=== PATIENT | male | born 1975 | race Caucasian/White ===

== ENCOUNTER 2022-10-02 10:12 | Inpatient (IN) ==
[2022-10-02] MEDS ORDERED: SODIUM CHLORIDE 0.9% 1000ML 1,000 ML IV ONE (10:32)
[2022-10-02] MEDS ORDERED: OPTIRAY 320 500ml IV ONE (10:40)
--- NOTE | 2022-10-02 10:53 | CT Scan Report ---
CT OF THE HEAD WITHOUT CONTRAST CLINICAL HISTORY: neuro deficit, acute stroke suspected. Weakness. COMPARISON STUDY: No previous studies for comparison. TECHNIQUE: Helical axial images of the head were obtained without IV contrast. Automated exposure con trol was utilized for the study. A dose lowering technique was utilized adhering to the principles o f ALARA. FINDINGS: No acute intracranial hemorrhage, midline shift or mass effect is present. The ventricular system is unremarkable. The basal cisterns are patent. No extra-axial collections are present. There are no findings to suggest acute dural sinus thrombosis or acute territorial infarct. No significant calvarial abnormalities are present. Visualized portions of the sinuses and mastoid air cells are giovanna ar. IMPRESSION: No acute intracranial findings. ACT 112: Negative or not required by law. Electronically signed by: Nickolas Gillespie M.D. 10/02/2022 10:51 AM
[2022-10-02 10:57] LABS: Basophils # (auto) 0.01 K/uL (0-0.2); Basophils % (auto) 0.2 %; Eosinophils # (auto) 0.07 K/uL (0-0.50); Eosinophils % (auto) 1.2 %; Hematocrit (blood only) 39.8 % (42.0-52.0); Hemoglobin 14.7 g/dl (14.0-18.0); Immature Granulocytes # (auto) 0.02 K/uL (0.01-0.20); Immature Granulocytes % (auto) 0.3 %; Lymphocytes # (auto) 1.77 K/uL (1.2-3.4); Lymphocytes % (auto) 30.6 %; Mean Corpuscular Hemoglobin 31.4 pg (25.0-34.0); Mean Corpuscular Hgb Conc 36.9 g/dL (32.0-36.0); Mean Platelet Volume 8.8 fL (9.4-12.4); Monocytes # (auto) 0.56 K/uL (0.11-0.59); Monocytes % (auto) 9.7 %; Neutrophils # (auto) 3.35 K/uL (1.40-6.50); Platelet Count 242 K/uL (130-400); RDW Coefficient of Variation 11.7 % (11.5-14.5); RDW Standard Deviation 35.4 fL (36.4-46.3); Red Blood Count 4.68 M/uL (4.70-6.10); White Blood Count 5.78 K/ul (4.8-10.8)
--- NOTE | 2022-10-02 11:00 | CT Scan Report ---
CT ANGIOGRAM OF THE NECK CLINICAL HISTORY: Neurological deficit. Stroke like symptoms. COMPARISON STUDY: No priors. TECHNIQUE: Following the IV administration of 120 of Optiray 320, CT angiogram of the neck was perfor med from the aortic arch to the skull base. Images are reviewed in the axial, sagittal, and coronal p lanes. 3-D MIPS images are created and assessed. IV contrast was administered without complication. A ll measurements were calculated based on NASCET criteria. A dose lowering technique was utilized adh ering to the principles of ALARA. CT DOSE: 1268.39 mGy.cm FINDINGS: Thoracic aorta: Visualized portions of the thoracic aorta are normal in caliber. The aortic arch demo nstrates bovine variant anatomy. Right carotid arterial system: The right common carotid artery is widely patent, as are the right int ernal and external carotid arteries. Left carotid arterial system: The left common carotid artery is widely patent, as are the left events intern al and external carotid arteries. Vertebral arteries: The vertebral arteries are widely patent bilaterally and codominant. Subclavian arteries: Widely patent bilaterally. Intracranial vasculature: The partially visualized intracranial vessels at the skull base appear jarvis nt. Sinuses and mastoids: There is trace mucosal thickening in the left maxillary antrum. The remaining v isualized paranasal sinuses are clear. The mastoid air cells are well pneumatized. Jugular veins: Widely patent bilaterally. Brain parenchyma: The visualized brain parenchyma the skull base is within normal limits. Upper chest: There are numerous subcentimeter upper lobe pulmonary nodules. No airspace consolidation or pleural effusion is identified. Mildly enlarged and calcified mediastinal lymph nodes are partial ly visualized. There are also calcified hilar nodes. Soft tissues: The visualized pharyngeal soft tissues are normal in appearance noting angiographic pha se technique. The oropharyngeal airway appears widely patent. The salivary and thyroid glands are nor mal in appearance. No cervical lymphadenopathy is seen. Skeletal structures: The visualized calvarium at the skull base appears intact. The imaged cervical s pine is within normal limits. Sinuses and mastoids: There is trace mucosal thickening in the left maxillary antrum. The remaining v isualized paranasal sinuses are clear. The mastoid air cells are well pneumatized. IMPRESSION: 1. Unremarkable CT angiogram of the neck. 2. There are numerous subcentimeter upper lobe pulmonary nodules as well as mildly enlarged and calci fication containing mediastinal and hilar lymph nodes. These finding could be related to remote granu lomatous infection or possibly a granulomatous process such as sarcoidosis. Clinical correlation will be required. Nonemergent/outpatient pulmonology follow-up is recommended. ACT 112: Negative or not required by law. Electronically signed by: Davey Gu M.D. 10/02/2022 10:59 AM
[2022-10-02] MEDS ORDERED: LABETALOL HCL IV 5 MG/ML 20ML IV ONE (11:02)
--- NOTE | 2022-10-02 11:09 | Emergency Department Note ---
Impression & Plan Hypertensive emergency, Stroke-like symptoms, Dizziness ED Provider Note NAME: GERMÁN DOSHI AGE: 46 SEX: M ARRIVES VIA: Walk-In INFORMANT: Patient ED PROVIDER(S): Reno Wills MD CHIEF COMPLAINT: dizziness, left face change in sensation. PLAN: Disposition: Admit MEDICAL DECISION MAKING: The patient is a pleasant 46-year-old gentleman with past medical history of hypertension who admits to being noncompliant with his medications where he is supposed to be on lisinopril who presents to the emergency department for acute onset of symptoms of dizziness/imbalance that occurred around 9 AM when he reports he was at work standing at his desk taking a phone call when he suddenly felt the sense of imbalance. He reports he sat down and felt somewhat better but still not quite normal. He reports when he would stand the symptoms would be more noticeable. He is able to ambulate but reports that he feels "drunk". He further adds he feels a difference in sensation on the left side of his face but does not feel "numbness. He denies any extremity weakness. He denies any chest pain, shortness of breath, headache, changes in vision. Denies any recent cough, congestion, GI or symptoms. 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 On arrival the patient is no acute distress, afebrile with blood pressure elevated in the 200s/120s and vital signs otherwise stable. He appears clinically dry. He has no objective neurologic deficits but reports subjective difference in sensation on the left side of his face as well as sense of imbalance but was noted to ambulate with a steady gait. Given the acute onset of his symptoms stroke alert was activated. Case was discussed with [facility] telestroke neurology Dr. Eastman who will evaluate the patient on telestroke terminal. EKG without overt acute ischemia. CXR negative for acute cardiopulmonary p rocess. WBC, hemoglobin and platelets within normal limits. Chemistry without metabolic acidosis. Electrolytes and LFTs without significant abnormality. High- sensitivity troponin 8.0, within normal limits. UA without evidence of infection. COVID-19 RNA, ELFEGO test was negative. CT of the head CT of the head and neck were performed negative for ICH, ischemia or severe narrowing or occlusion of large vessels. Upon [facility] telestroke evaluation the patient had subsequent resolution of symptoms though he did remain hypertensive. Patient was ordered for 10 mg of IV labetalol and has not some gradual improvement from maps in the 150s to maps in the 130s to the still in the 180s/130s. Appreciate recommendations from Dr. Harding for continued blood pressure management. MRI is not necessary at this point as stroke is not suspected. Recommends using 11 AM as new last known well for any recurrence of symptoms. Case was discussed with Tamra Jeffrey [facility] PAC with Dr. Szymanski, [facility] hospitalist, who will evaluate the patient for admission. IV Enalapril ordered for additional blood pressure control. Triage Nursing notes reviewed and agree them. Prior/outside medical records reviewed Vital Signs: reviewed Differential diagnosis: Infection, dehydration, metabolic abnormality, hypo/hyperglycemia, electrolyte disturbance, anemia, hypoxia, cardiac sources, intracerebral event, toxicologic, neurologic, as well as other pathologies. ER treatment provided: See below. Diagnostics interpreted by me: ECG: Normal sinus rhythm, 83 bpm, no ectopy, no overt ST elevation or depression, QTc 484, QRS 90 Cardiac Monitoring: An order for continuous cardiac monitoring was placed and demonstrated normal sinus rhythm, 83 bpm, no ectopy. Laboratory studies: See below Imaging studies: See below Consultation(s): [facility] telestroke neurology Dr. Eastman HPI: The patient is a pleasant 46-year-old gentleman with past medical history of hypertension who admits to being noncompliant with his medications where he is supposed to be on lisinopril who presents to the emergency department for acute onset of symptoms of dizziness/imbalance that occurred around 9 AM when he reports he was at work standing at his desk taking a phone call when he suddenly felt the sense of imbalance. He reports he sat down and felt somewhat better but still not quite normal. He reports when he would stand the symptoms would be more noticeable. He is able to ambulate but reports that he feels "drunk". He further adds he feels a difference in sensation on the left side of his face but does not feel "numbness. He denies any extremity weakness. He denies any chest pain, shortness of breath, headache, changes in vision. Denies any recent cough, congestion, GI or symptoms. 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 ROS: See above HPI for pertinent positives & negatives. A total of 10 systems reviewed and were otherwise negative. VITALS:See Below PHYSICAL EXAMINATION: GENERAL: Awake, alert, well-appearing, in no distress HENT: Normocephalic, atraumatic. Oropharynx with dry mucous membranes and otherwise unremarkable. EYES: Normal conjunctiva. Sclera non-icteric. EOMI. No nystamgus. PEARRL. NECK: Supple. No nuchal rigidity. FROM. No JVD. RESPIRATORY: Clear to auscultation. CARDIAC: Regular rate, normal rhythm. Extremities warm and well perfused. Pulses equal. ABDOMEN: Soft, non-distended. No tenderness to palpation. No rebound or guarding. No masses. RECTAL: Deferred. MUSCULOSKELETAL: Chest examination reveals no tenderness. The back is symmetrical on inspection without obvious abnormality. There is no CVA tenderness to palpation. No joint edema. LOWER EXTREMITIES: Calves are equal size bilaterally and non-tender. No edema. No discoloration. NEURO: Normal sensorium. No sensory or motor deficits noted. CNII-XII grossly intact. 5/5 strength and SILT x 4 extremities. Intact finger to nose. SKIN: No rash or jaundice noted. 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 Feels Safe at Home: Yes Allergies Allergies Allergy/AdvReac Type Severity Reaction Status Date / Time No Known Allergies Allergy Unverified 10/02/22 12:22 Home Meds Home Medications Medication Instructions Recorded Confirmed fluoxetine 20 mg tablet 30 mg PO DAILY 10/02/22 10/02/22 Results & Data (ED) Vital Signs Vital Signs - 24 hr 10/02/22 10:22 10/02/22 10:48 10/02/22 10:47 Temperature 36.9 C Temperature Source Temporal Artery Scan Pulse Rate 69 80 78 Pulse Rate [Apical] Pulse Rate from SpO2 Sensor Respiratory Rate 18 19 Respiratory Effort / Characteristics Non-Labored Spontaneous Respiratory Depth Normal Respiratory Pattern Regular Blood Pressure 202/128 H Blood Pressure [Right Arm] Blood Pressure Mean 152 Blood Pressure Mean [Right Arm] Blood Pressure Position Sitting Pulse Oximetry 98 98 Oxygen Delivery Method Room Air Room Air Sepsis Recent Fever Within 48 Hours No Sepsis New/Unexplained Change in Mental Status No Sepsis Action Taken by Nursing No Action Required 10/02/22 10:50 10/02/22 10:51 10/02/22 10:51 Temperature Temperature Source Pulse Rate 79 79 Pulse Rate [Apical] Pulse Rate from SpO2 Sensor Respiratory Rate 23 17 Respiratory Effort / Characteristics Respiratory Depth Respiratory Pattern Blood Pressure 205/127 H Blood Pressure [Right Arm] Blood Pressure Mean 153 Blood Pressure Mean [Right Arm] Blood Pressure Position Pulse Oximetry 97 Oxygen Delivery Method Room Air Sepsis Recent Fever Within 48 Hours Sepsis New/Unexplained Change in Mental Status Sepsis Action Taken by Nursing 10/02/22 10:45 10/02/22 11:00 10/02/22 11:00 Temperature Temperature Source Pulse Rate 78 76 Pulse Rate [Apical] Pulse Rate from SpO2 Sensor 76 Respiratory Rate 21 Respiratory Effort / Characteristics Respiratory Depth Respiratory Pattern Blood Pressure 247/145 H 185/139 H Blood Pressure [Right Arm] Blood Pressure Mean 179 154 Blood Pressure Mean [Right Arm] Blood Pressure Position Pulse Oximetry 96 Oxygen Delivery Method Sepsis Recent Fever Within 48 Hours Sepsis New/Unexplained Change in Mental Status Sepsis Action Taken by Nursing 10/02/22 11:05 10/02/22 11:05 10/02/22 11:10 Temperature Temperature Source Pulse Rate 70 74 Pulse Rate [Apical] Pulse Rate from SpO2 Sensor 72 74 Respiratory Rate 19 22 Respiratory Effort / Characteristics Respiratory Depth Respiratory Pattern Blood Pressure 208/127 H Blood Pressure [Right Arm] Blood Pressure Mean 154 Blood Pressure Mean [Right Arm] Blood Pressure Position Pulse Oximetry 98 98 Oxygen Delivery Method Sepsis Recent Fever Within 48 Hours Sepsis New/Unexplained Change in Mental Status Sepsis Action Taken by Nursing 10/02/22 11:08 10/02/22 11:18 10/02/22 11:18 Temperature Temperature Source Pulse Rate 75 Pulse Rate [Apical] Pulse Rate from SpO2 Sensor Respiratory Rate 24 Respiratory Effort / Characteristics Respiratory Depth Respiratory Pattern Blood Pressure 206/126 H 202/127 H Blood Pressure [Right Arm] Blood Pressure Mean 152 152 Blood Pressure Mean [Right Arm] Blood Pressure Position Pulse Oximetry Oxygen Delivery Method Sepsis Recent Fever Within 48 Hours Sepsis New/Unexplained Change in Mental Status Sepsis Action Taken by Nursing 10/02/22 11:20 10/02/22 11:20 10/02/22 11:27 Temperature Temperature Source Pulse Rate 71 Pulse Rate [Apical] Pulse Rate from SpO2 Sensor Respiratory Rate 24 Respiratory Effort / Characteristics Respiratory Depth Respiratory Pattern Blood Pressure 191/134 H 219/133 H Blood Pressure [Right Arm] Blood Pressure Mean 153 161 Blood Pressure Mean [Right Arm] Blood Pressure Position Pulse Oximetry 97 Oxygen Delivery Method Room Air Sepsis Recent Fever Within 48 Hours Sepsis New/Unexplained Change in Mental Status Sepsis Action Taken by Nursing 10/02/22 11:27 10/02/22 11:30 10/02/22 11:30 Temperature Temperature Source Pulse Rate 59 L 64 Pulse Rate [Apical] Pulse Rate from SpO2 Sensor 55 L 63 Respiratory Rate 11 L 19 Respiratory Effort / Characteristics Respiratory Depth Respiratory Pattern Blood Pressure 193/123 H Blood Pressure [Right Arm] Blood Pressure Mean 146 Blood Pressure Mean [Right Arm] Blood Pressure Position Pulse Oximetry 98 97 Oxygen Delivery Method Room Air Sepsis Recent Fever Within 48 Hours Sepsis New/Unexplained Change in Mental Status Sepsis Action Taken by Nursing 10/02/22 11:40 10/02/22 11:40 10/02/22 11:50 Temperature Temperature Source Pulse Rate 63 63 Pulse Rate [Apical] Pulse Rate from SpO2 Sensor 59 L 61 Respiratory Rate 20 23 Respiratory Effort / Characteristics Respiratory Depth Respiratory Pattern Blood Pressure 193/117 H Blood Pressure [Right Arm] Blood Pressure Mean 142 Blood Pressure Mean [Right Arm] Blood Pressure Position Pulse Oximetry 96 95 Oxygen Delivery Method Room Air Room Air Sepsis Recent Fever Within 48 Hours Sepsis New/Unexplained Change in Mental Status Sepsis Action Taken by Nursing 10/02/22 12:00 10/02/22 12:00 10/02/22 12:15 Temperature Temperature Source Pulse Rate 56 L 72 Pulse Rate [Apical] Pulse Rate from SpO2 Sensor 56 L 69 Respiratory Rate 14 15 Respiratory Effort / Characteristics Respiratory Depth Respiratory Pattern Blood Pressure 184/116 H Blood Pressure [Right Arm] Blood Pressure Mean 138 Blood Pressure Mean [Right Arm] Blood Pressure Position Pulse Oximetry 96 98 Oxygen Delivery Method Room Air Room Air Sepsis Recent Fever Within 48 Hours Sepsis New/Unexplained Change in Mental Status Sepsis Action Taken by Nursing 10/02/22 13:07 10/02/22 12:20 10/02/22 12:30 Temperature Temperature Source Pulse Rate 65 Pulse Rate [Apical] 62 Pulse Rate from SpO2 Sensor 65 Respiratory Rate 15 22 Respiratory Effort / Characteristics Respiratory Depth Respiratory Pattern Blood Pressure 171/124 H Blood Pressure [Right Arm] 179/116 H Blood Pressure Mean 139 Blood Pressure Mean [Right Arm] 137 Blood Pressure Position Pulse Oximetry 99 97 Oxygen Delivery Method Room Air Room Air Sepsis Recent Fever Within 48 Hours Sepsis New/Unexplained Change in Mental Status Sepsis Action Taken by Nursing 10/02/22 12:30 10/02/22 12:40 10/02/22 12:50 Temperature Temperature Source Pulse Rate 60 67 Pulse Rate [Apical] Pulse Rate from SpO2 Sensor 61 67 Respiratory Rate 16 16 Respiratory Effort / Characteristics Respiratory Depth Respiratory Pattern Blood Pressure 180/120 H Blood Pressure [Right Arm] Blood Pressure Mean 140 Blood Pressure Mean [Right Arm] Blood Pressure Position Pulse Oximetry 96 98 Oxygen Delivery Method Room Air Room Air Sepsis Recent Fever Within 48 Hours Sepsis New/Unexplained Change in Mental Status Sepsis Action Taken by Nursing 10/02/22 12:50 10/02/22 13:00 10/02/22 13:10 Temperature Temperature Source Pulse Rate 61 70 66 Pulse Rate [Apical] Pulse Rate from SpO2 Sensor 63 68 68 Respiratory Rate 18 14 30 H Respiratory Effort / Characteristics Respiratory Depth Respiratory Pattern Blood Pressure Blood Pressure [Right Arm] Blood Pressure Mean Blood Pressure Mean [Right Arm] Blood Pressure Position Pulse Oximetry 95 98 98 Oxygen Delivery Method Room Air Room Air Room Air Sepsis Recent Fever Within 48 Hours Sepsis New/Unexplained Change in Mental Status Sepsis Action Taken by Nursing 10/02/22 13:20 10/02/22 13:30 10/02/22 13:30 Temperature Temperature Source Pulse Rate 66 63 Pulse Rate [Apical] Pulse Rate from SpO2 Sensor 65 Respiratory Rate 32 H 21 Respiratory Effort / Characteristics Respiratory Depth Respiratory Pattern Blood Pressure 181/121 H Blood Pressure [Right Arm] Blood Pressure Mean 141 Blood Pressure Mean [Right Arm] Blood Pressure Position Pulse Oximetry 99 Oxygen Delivery Method Room Air Sepsis Recent Fever Within 48 Hours Sepsis New/Unexplained Change in Mental Status Sepsis Action Taken by Nursing Laboratory Data Attestation: I reviewed the patient's lab results. 10/02/22 10:43 10/02/22 10:43 Lab Results 10/02/22 10/02/22 10/02/22 Range/Units 10:43 10:43 10:43 WBC 5.78 (4.8-10.8) K/ul RBC 4.68 L (4.70-6.10) M/uL Hgb 14.7 (14.0-18.0) g/dl Hct 39.8 L (42.0-52.0) % MCV 85.0 (80.0-100.0) fL MCH 31.4 (25.0-34.0) pg MCHC 36.9 H (32.0-36.0) g/dL RDW Std Deviation 35.4 L (36.4-46.3) fL RDW Coeff of Shen 11.7 (11.5-14.5) % Plt Count 242 (130-400) K/uL MPV 8.8 L (9.4-12.4) fL Immature Gran % (Auto) 0.3 % Neut % (Auto) 58.0 % Lymph % (Auto) 30.6 % [place] % (Auto) 9.7 % Eos % (Auto) 1.2 % Baso % (Auto) 0.2 % Neut # (Auto) 3.35 (1.40-6.50) K/uL Lymph # (Auto) 1.77 (1.2-3.4) K/uL [place] # (Auto) 0.56 (0.11-0.59) K/uL Eos # (Auto) 0.07 (0-0.50) K/uL Baso # (Auto) 0.01 (0-0.2) K/uL Immature Gran # (Auto) 0.02 (0.01-0.20) K/uL PT 10.5 (9.0-12.0) Seconds INR 1.0 (0.9-1.1) APTT 28.2 (21.0-31.0) Seconds PTT Ratio 1.0 Sodium (136-145) mmol/L Potassium (3.5-5.1) mmol/L Chloride (98-107) mmol/L Carbon Dioxide (21-32) mmol/L Anion Gap (3-11) BUN (6-23) mg/dl Creatinine (0.6-1.4) mg/dl Est Cr Clr Drug Dosing ml/min Est GFR ( Amer) ml/min Est GFR (Non-Af Amer) ml/min BUN/Creatinine Ratio (10-20) Glucose (70-99(Fasting)) mg/dl POC Glucose (70-99) mg/dl Calcium (8.5-10.1) mg/dl Magnesium (1.7-2.4) mg/dl Total Bilirubin (0.2-1.0) mg/dl AST (13-39) U/L ALT (7-52) U/L Alkaline Phosphatase (34-104) U/L Troponin I High Sens (0-20) pg/ml Total Protein (6.0-8.3) gm/dl Albumin (3.4-5.0) gm/dl Globulin (2.5-4.0) gm/dl Albumin/Globulin Ratio (0.9-2) Urine Color Urine Appearance (Clear) Urine pH (4.5-7.5) Ur Specific [place] (1.000-1.030) Urine Protein (Negative) Urine Glucose (UA) (Negative) Urine Ketones (Negative) Urine Blood (Negative) Urine Nitrite (Negative) Urine Bilirubin (Negative) Urine Urobilinogen (Negative) Ur Leukocyte Esterase (Negative) Urine WBC (Auto) (0-5) /hpf Urine RBC (Auto) (0-4) /hpf U Hyaline Cast (Auto) (0-5) /lpf U Epithel Cells (Auto) (0-5) /lpf Urine Bacteria (Auto) (Negative) Urine Opiates Screen (Neg) Ur Methadone, Qual (Neg) Urine Barbiturates (Neg) Ur Phencyclidine (PCP) (Neg) U Amphetamin/Meth Scrn (Neg) MDMA (Ecstasy) Screen (Neg) U Benzodiazepines Scrn (Neg) Ur Cocaine Metabolite (Neg) U Marijuana (THC) Screen (Neg) SARS-CoV-2, RNA, NAAT (NEGATIVE) Blood Type O Positive Antibody Screen NEGATIVE 02/15/23 02/15/23 02/15/23 Range/Units 10:43 10:50 11:25 WBC (4.8-10.8) K/ul RBC (4.70-6.10) M/uL Hgb (14.0-18.0) g/dl Hct (42.0-52.0) % MCV (80.0-100.0) fL MCH (25.0-34.0) pg MCHC (32.0-36.0) g/dL RDW Std Deviation (36.4-46.3) fL RDW Coeff of Shen (11.5-14.5) % Plt Count (130-400) K/uL MPV (9.4-12.4) fL Immature Gran % (Auto) % Neut % (Auto) % Lymph % (Auto) % [place] % (Auto) % Eos % (Auto) % Baso % (Auto) % Neut # (Auto) (1.40-6.50) K/uL Lymph # (Auto) (1.2-3.4) K/uL [place] # (Auto) (0.11-0.59) K/uL Eos # (Auto) (0-0.50) K/uL Baso # (Auto) (0-0.2) K/uL Immature Gran # (Auto) (0.01-0.20) K/uL PT (9.0-12.0) Seconds INR (0.9-1.1) APTT (21.0-31.0) Seconds PTT Ratio Sodium 134 L (136-145) mmol/L Potassium 3.7 (3.5-5.1) mmol/L Chloride 102 (98-107) mmol/L Carbon Dioxide 28 (21-32) mmol/L Anion Gap 4 (3-11) BUN 19 (6-23) mg/dl Creatinine 1.17 (0.6-1.4) mg/dl Est Cr Clr Drug Dosing 98.9 ml/min Est GFR ( Amer) 86.7 ml/min Est GFR (Non-Af Amer) 74.8 ml/min BUN/Creatinine Ratio 16.2 (10-20) Glucose 94 (70-99(Fasting)) mg/dl POC Glucose 99 (70-99) mg/dl Calcium 8.3 L (8.5-10.1) mg/dl Magnesium 1.7 (1.7-2.4) mg/dl Total Bilirubin 0.5 (0.2-1.0) mg/dl AST 22 (13-39) U/L ALT 26 (7-52) U/L Alkaline Phosphatase 80 (34-104) U/L Troponin I High Sens 8.0 (0-20) pg/ml Total Protein 6.7 (6.0-8.3) gm/dl Albumin 3.7 (3.4-5.0) gm/dl Globulin 3.0 (2.5-4.0) gm/dl Albumin/Globulin Ratio 1.2 (0.9-2) Urine Color Yellow Urine Appearance Clear (Clear) Urine pH 6.5 (4.5-7.5) Ur Specific [place] 1.021 (1.000-1.030) Urine Protein 2+ H (Negative) Urine Glucose (UA) Negative (Negative) Urine Ketones Negative (Negative) Urine Blood Negative (Negative) Urine Nitrite Negative (Negative) Urine Bilirubin Negative (Negative) Urine Urobilinogen Negative (Negative) Ur Leukocyte Esterase Negative (Negative) Urine WBC (Auto) 0 (0-5) /hpf Urine RBC (Auto) 0-4 (0-4) /hpf U Hyaline Cast (Auto) 0 (0-5) /lpf U Epithel Cells (Auto) 0-5 (0-5) /lpf Urine Bacteria (Auto) Negative (Negative) Urine Opiates Screen (Neg) Ur Methadone, Qual (Neg) Urine Barbiturates (Neg) Ur Phencyclidine (PCP) (Neg) U Amphetamin/Meth Scrn (Neg) MDMA (Ecstasy) Screen (Neg) U Benzodiazepines Scrn (Neg) Ur Cocaine Metabolite (Neg) U Marijuana (THC) Screen (Neg) SARS-CoV-2, RNA, NAAT (NEGATIVE) Blood Type Antibody Screen 10/02/22 10/02/22 Range/Units 11:25 12:25 WBC (4.8-10.8) K/ul RBC (4.70-6.10) M/uL Hgb (14.0-18.0) g/dl Hct (42.0-52.0) % MCV (80.0-100.0) fL MCH (25.0-34.0) pg MCHC (32.0-36.0) g/dL RDW Std Deviation (36.4-46.3) fL RDW Coeff of Shen (11.5-14.5) % Plt Count (130-400) K/uL MPV (9.4-12.4) fL Immature Gran % (Auto) % Neut % (Auto) % Lymph % (Auto) % [place] % (Auto) % Eos % (Auto) % Baso % (Auto) % Neut # (Auto) (1.40-6.50) K/uL Lymph # (Auto) (1.2-3.4) K/uL [place] # (Auto) (0.11-0.59) K/uL Eos # (Auto) (0-0.50) K/uL Baso # (Auto) (0-0.2) K/uL Immature Gran # (Auto) (0.01-0.20) K/uL PT (9.0-12.0) Seconds INR (0.9-1.1) APTT (21.0-31.0) Seconds PTT Ratio Sodium (136-145) mmol/L Potassium (3.5-5.1) mmol/L Chloride (98-107) mmol/L Carbon Dioxide (21-32) mmol/L Anion Gap (3-11) BUN (6-23) mg/dl Creatinine (0.6-1.4) mg/dl Est Cr Clr Drug Dosing ml/min Est GFR ( Amer) ml/min Est GFR (Non-Af Amer) ml/min BUN/Creatinine Ratio (10-20) Glucose (70-99(Fasting)) mg/dl POC Glucose (70-99) mg/dl Calcium (8.5-10.1) mg/dl Magnesium (1.7-2.4) mg/dl Total Bilirubin (0.2-1.0) mg/dl AST (13-39) U/L ALT (7-52) U/L Alkaline Phosphatase (34-104) U/L Troponin I High Sens (0-20) pg/ml Total Protein (6.0-8.3) gm/dl Albumin (3.4-5.0) gm/dl Globulin (2.5-4.0) gm/dl Albumin/Globulin Ratio (0.9-2) Urine Color Urine Appearance (Clear) Urine pH (4.5-7.5) Ur Specific [place] (1.000-1.030) Urine Protein (Negative) Urine Glucose (UA) (Negative) Urine Ketones (Negative) Urine Blood (Negative) Urine Nitrite (Negative) Urine Bilirubin (Negative) Urine Urobilinogen (Negative) Ur Leukocyte Esterase (Negative) Urine WBC (Auto) (0-5) /hpf Urine RBC (Auto) (0-4) /hpf U Hyaline Cast (Auto) (0-5) /lpf U Epithel Cells (Auto) (0-5) /lpf Urine Bacteria (Auto) (Negative) Urine Opiates Screen Neg (Neg) Ur Methadone, Qual Neg (Neg) Urine Barbiturates Neg (Neg) Ur Phencyclidine (PCP) Neg (Neg) U Amphetamin/Meth Scrn Neg (Neg) MDMA (Ecstasy) Screen Neg (Neg) U Benzodiazepines Scrn Neg (Neg) Ur Cocaine Metabolite Neg (Neg) U Marijuana (THC) Screen Neg (Neg) SARS-CoV-2, RNA, NAAT NEGATIVE (NEGATIVE) Blood Type Antibody Screen Administered Medications Discontinued Medications Sodium Chloride (Nss 1000ml) 1,000 mls @ 999 mls/hr IV .[id number] ONE Stop: 10/02/22 11:32 Last Infusion: 10/02/22 11:57 Dose: 0 mls/hr Documented By: Admin: 10/02/22 10:56 Dose: 999 mls/hr Documented By: MARIO Enalaprilat 0.625 mg/ Syringe 10 mls @ 2 mls/min IV NOW STA Stop: 10/02/22 12:21 Last Admin: 10/02/22 12:52 Dose: 2 mls/min Documented By: JUANIS Ioversol (Optiray 320 500ml) 120 ml IV ONCE ONE Stop: 10/02/22 10:41 Last Admin: 10/02/22 10:41 Dose: 120 ml Documented By: TEOFILO Labetalol HCl (Labetalol Hcl Iv 5 Mg/Ml 20ml) Confirm Administered Dose 10 mg IV .STK-MED ONE Stop: 10/02/22 11:03 Last Admin: 10/02/22 11:11 Dose: 10 mg Documented By: MARIO Co-signed By: KEYONA Labetalol HCl (Labetalol Hcl Iv 5 Mg/Ml 20ml) 10 mg IV NOW STA Stop: 10/02/22 11:12 Last Admin: 10/02/22 11:18 Dose: Not Given Documented By: MARIO Lisinopril (Lisinopril 20 Mg Tab) 20 mg PO NOW STA Stop: 10/02/22 13:10 Last Admin: 10/02/22 13:36 Dose: 20 mg Documented By: JUANIS Imaging Data Radiologist's Impression: Chest X-Ray 10/02/22 00:00 SINGLE VIEW CHEST CLINICAL HISTORY: Neurological deficit. Stroke like symptoms. FINDINGS: An AP, portable, upright chest radiograph is obtained. No prior studies are available for comparison at the time of dictation. The examination is degraded by portable technique and apical lordotic positioning. The cardiomediastinal silhouette is top normal for projection. Calcified granulomas are suggested. No airspace consolidation or large pleural effusion is identified. No pneumothorax is seen. The bony thorax is grossly intact. IMPRESSION: No acute cardiopulmonary abnormality is identified. ACT 112: Negative or not required by law. Electronically signed by: Davey Gu M.D. 10/02/2022 12:[address] 10/02/22 10:32 CT OF THE HEAD WITHOUT CONTRAST CLINICAL HISTORY: neuro deficit, acute stroke suspected. Weakness. COMPARISON STUDY: No previous studies for comparison. TECHNIQUE: Helical axial images of the head were obtained without IV contrast. Automated exposure control was utilized for the study. A dose lowering technique was utilized adhering to the principles of ALARA. FINDINGS: No acute intracranial hemorrhage, midline shift or mass effect is present. The ventricular system is unremarkable. The basal cisterns are patent. No extra-axial collections are present. There are no findings to suggest acute dural sinus thrombosis or acute territorial infarct. No significant calvarial abnormalities are present. Visualized portions of the sinuses and mastoid air cells are clear. IMPRESSION: No acute intracranial findings. ACT 112: Negative or not required by law. Electronically signed by: Nickolas Gillespie M.D. 10/02/2022 10:51 AM Head CTA 10/02/22 10:32 CT angio head w con CLINICAL HISTORY: 46 years-old Male with neuro deficit, acute stroke suspected. Acute strokelike symptoms COMPARISON STUDY: Head CT of same day TECHNIQUE: Following the IV administration of 120 cc of Optiray, CT angiogram of the brain was performed from the skull base to the vertex. Images are reviewed in the axial, sagittal, and coronal planes. 3-D MIPS images are created and assessed. IV contrast was administered without complication. All measurements were obtained according to NASCET criteria. A dose lowering technique was utilized adhering to the principles of ALARA. FINDINGS: CT ANGIOGRAM OF THE BRAIN: The imaged bilateral internal carotid arteries are patent. The bilateral anterior and middle cerebral arteries are also patent. The vertebrobasilar s ystem and posterior cerebral arteries are widely patent. There is no aneurysm, high-grade stenosis, or proximal branch occlusion identified. Dural sinuses appear patent. IMPRESSION: Unremarkable CTA of the head. ACT 112: Negative or not required by law. The above report was generated using voice recognition software. It may contain grammatical, syntax or spelling errors. Electronically signed by: Gwyn Saldana M.D. 10/02/2022 11:07 AM Neck CTA 10/02/22 10:32 CT ANGIOGRAM OF THE NECK CLINICAL HISTORY: Neurological deficit. Stroke like symptoms. COMPARISON STUDY: No priors. TECHNIQUE: Following the IV administration of 120 of Optiray 320, CT angiogram of the neck was performed from the aortic arch to the skull base. Images are reviewed in the axial, sagittal, and coronal planes. 3-D MIPS images are created and assessed. IV contrast was administered without complication. All measurements were calculated based on NASCET criteria. A dose lowering technique was utilized adhering to the principles of ALARA. CT DOSE: 1268.39 mGy.cm FINDINGS: Thoracic aorta: Visualized portions of the thoracic aorta are normal in caliber. The aortic arch demonstrates bovine variant anatomy. Right carotid arterial system: The right common carotid artery is widely patent, as are the right internal and external carotid arteries. Left carotid arterial system: The left common carotid artery is widely patent, as are the left internal and external carotid arteries. Vertebral arteries: The vertebral arteries are widely patent bilaterally and codominant. Subclavian arteries: Widely patent bilaterally. Intracranial vasculature: The partially visualized intracranial vessels at the skull base appear patent. Sinuses and mastoids: There is trace mucosal thickening in the left maxillary antrum. The remaining visualized paranasal sinuses are clear. The mastoid air cells are well pneumatized. Jugular veins: Widely patent bilaterally. Brain parenchyma: The visualized brain parenchyma the skull base is within normal limits. Upper chest: There are numerous subcentimeter upper lobe pulmonary nodules. No airspace consolidation or pleural effusion is identified. Mildly enlarged and calcified mediastinal lymph nodes are partially visualized. There are also calcified hilar nodes. Soft tissues: The visualized pharyngeal soft tissues are normal in appearance noting angiographic phase technique. The oropharyngeal airway appears widely patent. The salivary and thyroid glands are normal in appearance. No cervical lymphadenopathy is seen. Skeletal structures: The visualized calvarium at the skull base appears intact. The imaged cervical spine is within normal limits. Sinuses and mastoids: There is trace mucosal thickening in the left maxillary antrum. The remaining visualized paranasal sinuses are clear. The mastoid air cells are well pneumatized. IMPRESSION: 1. Unremarkable CT angiogram of the neck. 2. There are numerous subcentimeter upper lobe pulmonary nodules as well as mildly enlarged and calcification containing mediastinal and hilar lymph nodes. These finding could be related to remote granulomatous infection or possibly a granulomatous process such as sarcoidosis. Clinical correlation will be required. Nonemergent/outpatient pulmonology follow-up is recommended. ACT 112: Negative or not required by law. Electronically signed by: Davey Gu M.D. 10/02/2022 10:59 AM Discharge Plan Visit Data Chief Complaint: Dizziness Stated Complaint: LIGHTHEADED, DIZZINESS ED Provider: Reno Wills Discharge Problem: Hypertensive emergency, Stroke-like symptoms, Dizziness Forms Stand Alone Forms: [employer] Prescriptions Prescriptions: No Action fluoxetine 20 mg Tablet 30 mg PO DAILY Referrals Referrals: Pasha Parr M.D. [Primary Care Provider] -
--- NOTE | 2022-10-02 11:09 | CT Scan Report ---
CT angio head w con CLINICAL HISTORY: 46 years-old Male with neuro deficit, acute stroke suspected. Acute strokelike s ymptoms COMPARISON STUDY: Head CT of same day TECHNIQUE: Following the IV administration of 120 cc of Optiray, CT angiogram of the brain was perfor med from the skull base to the vertex. Images are reviewed in the axial, sagittal, and coronal planes . 3-D MIPS images are created and assessed. IV contrast was administered without complication. All me asurements were obtained according to NASCET criteria. A dose lowering technique was utilized adherin g to the principles of ALARA. FINDINGS: CT ANGIOGRAM OF THE BRAIN: The imaged bilateral internal carotid arteries are patent. The bilateral anterior and middle cerebral arteries are also patent. The vertebrobasilar system and posterior cerebral arteries are widely jarvis nt. There is no aneurysm, high-grade stenosis, or proximal branch occlusion identified. Dural sinuses appear patent. IMPRESSION: Unremarkable CTA of the head. ACT 112: Negative or not required by law. The above report was generated using voice recognition software. It may contain grammatical, syntax o r spelling errors. Electronically signed by: Gwyn Saldana M.D. 10/02/2022 11:07 AM
[2022-10-02] MEDS ORDERED: LABETALOL HCL IV STA (11:11)
[2022-10-02] MEDS ORDERED: LABETALOL HCL IV 5 MG/ML 20ML IV STA (11:11)
[2022-10-02 11:12] LABS: Partial Thromboplastin Time 28.2 Seconds (21.0-31.0); Prothrombin Time 10.5 Seconds (9.0-12.0)
[2022-10-02 11:21] LABS: Albumin Globulin Ratio 1.2 (0.9-2); Albumin Level 3.7 gm/dl (3.4-5.0); BUN Creatinine Ratio 16.2 (10-20); Bilirubin,Total 0.5 mg/dl (0.2-1.0); Calcium 8.3 mg/dl (8.5-10.1); Creatinine Clr Calc Pharmacy 98.9 ml/min; Est GFR (African American) 86.7 ml/min; Est GFR (Non-African American) 74.8 ml/min; Magnesium 1.7 mg/dl (1.7-2.4); Potassium 3.7 mmol/L (3.5-5.1); Total Protein 6.7 gm/dl (6.0-8.3)
[2022-10-02 11:37] LABS: Appearance Urine Clear (Clear); Bacteria Urine Automated Negative (Negative); Bilirubin Urine Negative (Negative); Blood Urine Negative (Negative); Cast Urine Automated 0 /lpf (0-5); Color Urine Yellow; Epithelial Cell Urine Auto 0-5 /lpf (0-5); Glucose Urine UA Negative (Negative); Ketones Urine Negative (Negative); Leukocyte Esterase Urine Negative (Negative); Nitrite Urine Negative (Negative); Protein Urine 2+ (Negative); RBC Urine Automated 0-4 /hpf (0-4); Specific Gravity Urine 1.021 (1.000-1.030); Urobilinogen Urine Negative (Negative); WBC Urine Automated 0 /hpf (0-5); pH Urine 6.5 (4.5-7.5)
[2022-10-02] MEDS ORDERED: ENALAPRILAT 0.625 MG in SYRINGE 9.5 ML IV STA (12:17)
--- NOTE | 2022-10-02 12:19 | XRay Report ---
SINGLE VIEW CHEST CLINICAL HISTORY: Neurological deficit. Stroke like symptoms. FINDINGS: An AP, portable, upright chest radiograph is obtained. No prior studies are available for c omparison at the time of dictation. The examination is degraded by portable technique and apical lord otic positioning. The cardiomediastinal silhouette is top normal for projection. Calcified granuloma s are suggested. No airspace consolidation or large pleural effusion is identified. No pneumothorax i s seen. The bony thorax is grossly intact. IMPRESSION: No acute cardiopulmonary abnormality is identified. ACT 112: Negative or not required by law. Electronically signed by: Davey Gu M.D. 10/02/2022 12:17 PM
--- NOTE | 2022-10-02 13:03 | History & Physical Report ---
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 Pt presented to ED with BP 247/145 with associated neurological sx of vertigo and L sided facial, "sensation." He received 10mg IV labetalol with improvement of blood pressures to 180s over 120s. His neurologic symptoms also resolved. Stroke alert was called secondary to neurologic symptoms in association with severely elevated blood pressure. He was felt to be not a TNKase candidate as symptoms resolved. Last known well is now 11 AM in the event symptoms would return. He has prior history of hypertension however had stopped taking his lisinopril approximately a year ago. He does drink significant caffeine and does associate increased stress in life. He did receive 0.625 mg of IV Vasotec in ER as well Hypertensive emergency admit to PCU for freq BP monitoring and neuro checks will start lisinopril 20mg x 1 now and then daily UDS and urine for metanephrines/catecolamines ordered to eval for Pheo will need close OP follow up for BP management heart healthy, low sodium diet a1c, lipid panel in a.m +FH of Mother with NM and bypass in early 60s encourage weaning off and significantly reducing caffeine intake it is possible pt may have had a TIA vs hypertensive encephalopathy Proteinuria will repeat urine in a.m. possible 2/2 long standing HTN will need close OP follow up if remains positive Abnormal CT scan, neck CT: There are numerous subcentimeter upper lobe pulmonary nodules as well as mildly enlarged and calcification containing mediastinal and hilar lymph nodes. These finding could be related to remote granulomatous infection or possibly a granulomatous process such as sarcoidosis. Clinical correlation will be required. Nonemergent/outpatient pulmonology follow-up is recommended. Pt will need OP follow up DVT ppx: SCDS for now until bp better controlled Dispo: admitted to PCU for close BP monitoring and management FULL CODE PCP: Dr. Karolyn Chris Pt was seen and examined in collaboration with Dr. Szymanski, please see addendum A total of 75 minutes were spent with greater than 50% of that time face to face with the patient, personally reviewing all current laboratories, imaging studies, past medication reconciliation, outpatient chart review, and discussion with specialists to collaborate care for the patient with attending. Please see attending documentation for corrections and/or additions. 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 He was at work when he got off the phone and had an off-balance sensation when trying to walk, stumbled but caught himself and did not fall. He went in and sat down and generally just did not, "feel right." He also elicits to a sensation to the left side of his head and face. He denies claudia numbness or tingling to the left side and face. He denies any slurred speech or reported facial droop or associated limb weakness. He has never felt anything like this before. After sitting down he had to go back outside to make a call when he continued to feel off balance and not right, but this time did not stumble. He then alerted his boss he needed to seek medical treatment. He denies any claudia headache, change in vision or change in hearing, tinnitus, chest pain, shortness of breath, cough, palpitations, nausea, vomiting, abdominal pain. He is otherwise been in the normal state of health. He only takes 1 medication for his PTSD. 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 He does admit to increased stress in his life right now. He does have a significant family history of coronary artery disease in his mother who suffered a heart attack and bypass in her early 60s. He denies any cardiac or high blood pressure in his father. He does drink 4 to 6 cups of coffee a day. Allergies Allergy/AdvReac Type Severity Reaction Status Date / Time No Known Allergies Allergy Unverified 10/02/22 12:22 Home Medications Medication Instructions Recorded Confirmed Type fluoxetine 20 mg tablet 30 mg PO DAILY 10/02/22 10/02/22 History Past Med/Surg History Medical History Depression HTN (hypertension) PTSD (post-traumatic stress disorder) Surgical History H/O arthroscopic knee surgery Family History Mother Coronary heart disease Myocardial infarction first NM in early 60s Father Alive and well Social History Smoking Status: Never smoker Second Hand Exposure: No; Do You Dip or Chew Tobacco: No; Tobacco Cessation Education Requested by Patient: No Hx Alcohol Use: No Hx Substance Use: No Preferred Language: Mozambican Communication Ability: Effective Correctional Probation Officer Required: No Beliefs That Will Affect Care: None marital status: Current Living Situation: Alone 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 Other Information That Helps Us Care for You: No Feels Safe at Home: Yes Safety Concerns: Feels Safe At This Time Assistive Devices: None Review of Systems Review of Systems: All systems reviewed & are unremarkable except as noted in HPI & below Physical Exam Physical Exam: Constitutional: WD/WN, vitals as above, NAD, sitting up in bed, pleasant, conversing easily Head: Normocephalic, Atraumatic Eyes: PERRL, conjunctivae normal, anicteric sclerae ENMT: external ear and nose normal, oropharynx normal Neck: trachea midline, no thyromegaly normal visual inspection Respiratory: normal respiratory effort, lungs clear to auscultation, no wheeze, rales, rhonchi. Normal insp/exp effort, no accessory muscle use Cardiovascular: RRR, no murmur, no edema Vessels: no JVD or carotid bruit Chest: normal inspection of chest Abdomen: normal bowel sounds, soft, nontender, no hepatosplenomegaly Musculoskeletal: no cyanosis or clubbing, extremities motor strength 5/5 Skin: no rashes, warm and dry normal turgor Neurologic: PERRL, EOMI, accommodation nl, no face palsy, no dysarthria CN's II-XI intact bilaterally and moves all extremities Psychiatric: A+Ox3, euthymic affect Lymphatic: no cervical or axillary lymphadenopathy : deferred Results & Data Results & Data ([facility]) Vital Signs (Past 12 Hours) Vital Signs Temp Pulse Resp BP Pulse Ox O2 Del Method 10/02/22 12:50 61 18 95 Room Air 10/02/22 12:50 180/120 H 10/02/22 12:40 67 16 98 Room Air 10/02/22 12:30 60 16 96 Room Air 10/02/22 12:30 171/124 H 10/02/22 12:20 65 22 97 Room Air 10/02/22 12:15 72 15 98 Room Air 10/02/22 12:00 56 L 14 96 Room Air 10/02/22 12:00 184/116 H 10/02/22 11:50 63 23 95 Room Air 10/02/22 11:40 63 20 96 Room Air 10/02/22 11:40 193/117 H 10/02/22 11:30 64 19 97 Room Air 10/02/22 11:30 193/123 H 10/02/22 11:27 59 L 11 L 98 10/02/22 11:27 219/133 H 10/02/22 11:20 71 24 10/02/22 11:20 191/134 H 97 Room Air 10/02/22 11:18 202/127 H 10/02/22 11:18 75 24 10/02/22 11:08 206/126 H 10/02/22 11:10 74 22 98 10/02/22 11:05 208/127 H 10/02/22 11:05 70 19 98 10/02/22 11:00 76 21 96 10/02/22 11:00 185/139 H 10/02/22 10:45 78 247/145 H 10/02/22 10:51 205/127 H 10/02/22 10:51 79 17 10/02/22 10:50 79 23 97 Room Air 10/02/22 10:47 78 19 98 Room Air 10/02/22 10:48 80 10/02/22 10:22 36.9 C 69 18 202/128 H 98 Room Air Diagnostic Findings Chest X-Ray 10/02/22 00:00 SINGLE VIEW CHEST CLINICAL HISTORY: Neurological deficit. Stroke like symptoms. FINDINGS: An AP, portable, upright chest radiograph is obtained. No prior studies are available for comparison at the time of dictation. The examination is degraded by portable technique and apical lordotic positioning. The cardiomediastinal silhouette is top normal for projection. Calcified granulomas are suggested. No airspace consolidation or large pleural effusion is identified. No pneumothorax is seen. The bony thorax is grossly intact. IMPRESSION: No acute cardiopulmonary abnormality is identified. ACT 112: Negative or not required by law. Electronically signed by: Davey Gu M.D. 10/02/2022 12:[address] 10/02/22 10:32 CT OF THE HEAD WITHOUT CONTRAST CLINICAL HISTORY: neuro deficit, acute stroke suspected. Weakness. COMPARISON STUDY: No previous studies for comparison. TECHNIQUE: Helical axial images of the head were obtained without IV contrast. Automated exposure control was utilized for the study. A dose lowering technique was utilized adhering to the principles of ALARA. FINDINGS: No acute intracranial hemorrhage, midline shift or mass effect is present. The ventricular system is unremarkable. The basal cisterns are patent. No extra-axial collections are present. There are no findings to suggest acute dural sinus thrombosis or acute territorial infarct. No significant calvarial abnormalities are present. Visualized portions of the sinuses and mastoid air cells are clear. IMPRESSION: No acute intracranial findings. ACT 112: Negative or not required by law. Electronically signed by: Nickolas Gillespie M.D. 10/02/2022 10:51 AM Head CTA 10/02/22 10:32 CT angio head w con CLINICAL HISTORY: 46 years-old Male with neuro deficit, acute stroke suspected. Acute strokelike symptoms COMPARISON STUDY: Head CT of same day TECHNIQUE: Following the IV administration of 120 cc of Optiray, CT angiogram of the brain was performed from the skull base to the vertex. Images are reviewed in the axial, sagittal, and coronal planes. 3-D MIPS images are created and assessed. IV contrast was administered without complication. All measurements were obtained according to NASCET criteria. A dose lowering technique was utilized adhering to the principles of ALARA. FINDINGS: CT ANGIOGRAM OF THE BRAIN: The imaged bilateral internal carotid arteries are patent. The bilateral anterior and middle cerebral arteries are also patent. The vertebrobasilar system and posterior cerebral arteries are widely patent. There is no aneurysm, high-grade stenosis, or proximal branch occlusion identified. Dural sinuses appear patent. IMPRESSION: Unremarkable CTA of the head. ACT 112: Negative or not required by law. The above report was generated using voice recognition software. It may contain grammatical, syntax or spelling errors. Electronically signed by: Gwyn Saldana M.D. 10/02/2022 11:07 AM Neck CTA 10/02/22 10:32 CT ANGIOGRAM OF THE NECK CLINICAL HISTORY: Neurological deficit. Stroke like symptoms. COMPARISON STUDY: No priors. TECHNIQUE: Following the IV administration of 120 of Optiray 320, CT angiogram of the neck was performed from the aortic arch to the skull base. Images are reviewed in the axial, sagittal, and coronal planes. 3-D MIPS images are created and assessed. IV contrast was administered without complication. All measurements were calculated based on NASCET criteria. A dose lowering [employer] ue was utilized adhering to the principles of ALARA. CT DOSE: 1268.39 mGy.cm FINDINGS: Thoracic aorta: Visualized portions of the thoracic aorta are normal in caliber. The aortic arch demonstrates bovine variant anatomy. Right carotid arterial system: The right common carotid artery is widely patent, as are the right internal and external carotid arteries. Left carotid arterial system: The left common carotid artery is widely patent, as are the left internal and external carotid arteries. Vertebral arteries: The vertebral arteries are widely patent bilaterally and codominant. Subclavian arteries: Widely patent bilaterally. Intracranial vasculature: The partially visualized intracranial vessels at the skull base appear patent. Sinuses and mastoids: There is trace mucosal thickening in the left maxillary antrum. The remaining visualized paranasal sinuses are clear. The mastoid air cells are well pneumatized. Jugular veins: Widely patent bilaterally. Brain parenchyma: The visualized brain parenchyma the skull base is within normal limits. Upper chest: There are numerous subcentimeter upper lobe pulmonary nodules. No airspace consolidation or pleural effusion is identified. Mildly enlarged and calcified mediastinal lymph nodes are partially visualized. There are also calcified hilar nodes. Soft tissues: The visualized pharyngeal soft tissues are normal in appearance noting angiographic phase technique. The oropharyngeal airway appears widely patent. The salivary and thyroid glands are normal in appearance. No cervical lymphadenopathy is seen. Skeletal structures: The visualized calvarium at the skull base appears intact. The imaged cervical spine is within normal limits. Sinuses and mastoids: There is trace mucosal thickening in the left maxillary antrum. The remaining visualized paranasal sinuses are clear. The mastoid air cells are well pneumatized. IMPRESSION: 1. Unremarkable CT angiogram of the neck. 2. There are numerous subcentimeter upper lobe pulmonary nodules as well as mildly enlarged and calcification containing mediastinal and hilar lymph nodes. These finding could be related to remote granulomatous infection or possibly a granulomatous process such as sarcoidosis. Clinical correlation will be required. Nonemergent/outpatient pulmonology follow-up is recommended. ACT 112: Negative or not required by law. Electronically signed by: Davey Gu M.D. 10/02/2022 10:59 AM Medications Administered Medication List Discontinued Medications Sodium Chloride (Nss 1000ml) 1,000 mls @ 999 mls/hr IV .Q1H1M ONE Stop: 10/02/22 11:32 Last Infusion: 10/02/22 11:57 Dose: 0 mls/hr Documented By: Admin: 10/02/22 10:56 Dose: 999 mls/hr Documented By: MARIO Enalaprilat 0.625 mg/ Syringe 10 mls @ 2 mls/min IV NOW STA Stop: 10/02/22 12:21 Last Admin: 10/02/22 12:52 Dose: 2 mls/min Documented By: JUANIS Ioversol (Optiray 320 500ml) 120 ml IV ONCE ONE Stop: 10/02/22 10:41 Last Admin: 10/02/22 10:41 Dose: 120 ml Documented By: TEOFILO Labetalol HCl (Labetalol Hcl Iv 5 Mg/Ml 20ml) Confirm Administered Dose 10 mg IV .STK-MED ONE Stop: 10/02/22 11:03 Last Admin: 10/02/22 11:11 Dose: 10 mg Documented By: MARIO Co-signed By: KEYONA Labetalol HCl (Labetalol Hcl Iv 5 Mg/Ml 20ml) 10 mg IV NOW STA Stop: 10/02/22 11:12 Last Admin: 10/02/22 11:18 Dose: Not Given Documented By: MARIO ECG Rate (beats per minute): 83 Rhythm: normal sinus Additional Comments: prolonged qtc 484ms COVID-19 Results Results COVID-19 Adm Lab Results: RBC 4.68 M/uL (4.70-6.10) L 10/02/22 WBC 5.78 K/ul (4.8-10.8) 10/02/22 Hgb 14.7 g/dl (14.0-18.0) 10/02/22 Hct 39.8 % (42.0-52.0) L 10/02/22 Plt Count 242 K/uL (130-400) 10/02/22 Neutrophils (%) (Auto) 58.0 % 10/02/22 Lymphocytes (%) (Auto) 30.6 % 10/02/22 Monocytes # (Auto) 0.56 K/uL (0.11-0.59) 10/02/22 Eosinophils # (Auto) 0.07 K/uL (0-0.50) 10/02/22 Immature Granulocyte % (Auto) 0.3 % 10/02/22 Neutrophils # (Auto) 3.35 K/uL (1.40-6.50) 10/02/22 Lymphocytes # (Auto) 1.77 K/uL (1.2-3.4) 10/02/22 Monocytes # (Auto) 0.56 K/uL (0.11-0.59) 10/02/22 Eosinophils # (Auto) 0.07 K/uL (0-0.50) 10/02/22 Basophils # (Auto) 0.01 K/uL (0-0.2) 10/02/22 Immature Granulocyte # (Auto) 0.02 K/uL (0.01-0.20) 3 Na 134 mmol/L (136-145) L 10/02/22 K 3.7 mmol/L (3.5-5.1) 10/02/22 Cl 102 mmol/L (98-107) 10/02/22 CO2 28 mmol/L (21-32) 10/02/22 Anion Gap 4 (3-11) 10/02/22 BUN 19 mg/dl (6-23) 10/02/22 Creatinine 1.17 mg/dl (0.6-1.4) 10/02/22 BUN/Creatinine Ratio 16.2 (10-20) 10/02/22 Glucose Level 94 mg/dl (70-99(Fasting)) 10/02/22 Ca 8.3 mg/dl (8.5-10.1) L 10/02/22 Total Bilirubin 0.5 mg/dl (0.2-1.0) 10/02/22 AST/SGOT 22 U/L (13-39) 10/02/22 ALT/SGPT 26 U/L (7-52) 10/02/22 Alkaline Phosphatase 80 U/L (34-104) 10/02/22 Total Protein 6.7 gm/dl (6.0-8.3) 10/02/22 Albumin 3.7 gm/dl (3.4-5.0) 10/02/22 Globulin 3.0 gm/dl (2.5-4.0) 10/02/22 Albumin/Globulin Ratio 1.2 (0.9-2) 10/02/22 PTT 28.2 Seconds (21.0-31.0) 10/02/22 INR 1.0 (0.9-1.1) 10/02/22 SARS-CoV-2, RNA, NAAT NEGATIVE (NEGATIVE) 10/02/22 Chest X-Ray 10/02/22 Code Status & VTE Plan Code Status FULL CODE Supervising Physician Co-Signing Physician Notes I have seen and examined the patient and have discussed the case with the provider above. I agree with the assessment and plan as stated. The patient is a 46-year-old man presenting to the ER with neurologic symptoms and a blood pressure of 247/145. After 10 mg IV labetalol his vertigo and left- sided sensation of the face resolved stroke alert was called however symptoms resolved therefore he was not a TN kinase candidate. The patient currently is denying any headache, visual changes, neurologic symptoms, chest pain, belly pain or any other symptoms. He reports feeling fine. He does admit to waking up with headaches with occasional daytime fatigue. He states that during a health physical for his work he did have an elevated blood pressure in the 170s range, and states that he knows his blood pressure is high but purposely does not check it because of continuing to try sodium restriction, etc. He does drink a significant amount of caffeine. On physical exam he is in no acute distress he is a well-nourished well- developed man who is physically fit. ENT exam is normal and oral mucosa is moist. Pupils are PERRL. Funduscopic exam is normal bilaterally. CN II through XII is grossly intact. There is no gross focal neurologic deficit. There is no strength deficit. Cardiopulmonary exam is unremarkable. Work-up reveals a CBC that is normal, coags are normal, BMP is normal. Urinalysis is normal aside from a 2+ protein. Urine drug screen is negative. COVID is negative. CT angio of the neck head and head CT was performed and negative. Chest x-ray is clear. EKG reveals sinus rhythm [address] changes. Hypertensive Emergency: admitted to PCU after initial treatment with labetalol IV in the ER. Transient neurologic deficits that have resolved with treatment of BP. BP reading is now 170/117. UDS clear. Will cont close monitoring. IV Vasotec administered and restarted on PO lisinopril. Rule out secondary pheo with 24 hr urine studies. Educate to reduce caffeine intake and reduce sodium. Outpatient sleep study may be considered given wake up headaches and daytime fatigue. DO Stephon
[2022-10-02] MEDS ORDERED: lisinopril 20 MG TAB PO STA (13:09)
[2022-10-02 13:44] LABS: Amphetamines+Metham, Urine Neg (Neg); Barbiturates, Urine Neg (Neg); Benzodiazepine, Urine Neg (Neg); Cocaine, Urine Neg (Neg); MDMA (Ecstacy), Urine Neg (Neg); Methadone, Urine Neg (Neg); Opiate, Urine Neg (Neg); Phencyclidine, Urine Neg (Neg)
[2022-10-02] MEDS ORDERED: MAGNESIUM HYDROXIDE SUSP 30 ML UDC PO PRN (16:05)
[2022-10-02] MEDS ORDERED: ALUMINUM/MAGNESIUM SUSP 30 ML UDC PO PRN (16:05)
[2022-10-02] MEDS ORDERED: POLYETHYLENE (MIRALAX) 17 GM PACK PO PRN (16:05)
[2022-10-02] MEDS ORDERED: ACETAMINOPHEN 325 MG TAB PO PRN (16:05)
[2022-10-02] MEDS ORDERED: hydrALAZINE HCL 20 MG/ML VIAL IV STA ×2 (16:51→17:55)
--- NOTE | 2022-10-02 22:31 | Electrocardiogram Report ---
Test Reason : Blood Pressure : / mmHG Vent. Rate : 083 BPM Atrial Rate : 083 BPM P-R Int : 140 ms QRS Dur : 098 ms QT Int : 412 ms P-R-T Axes : 042 004 048 degrees QTc Int : 484 ms Poor data quality, interpretation may be adversely affected Normal sinus rhythm Prolonged QT Abnormal ECG No previous ECGs available Confirmed by Jose Miguel Fishman ([id number]) on 10/02/2022 10:31:39 PM Referred By: REFERRED SELF Confirmed By:Jose Miguel Fishman
[2022-10-03 06:31] LABS: Hematocrit (blood only) 41.8 % (42.0-52.0); Hemoglobin 15.2 g/dl (14.0-18.0); Mean Corpuscular Hemoglobin 31.5 pg (25.0-34.0); Mean Corpuscular Hgb Conc 36.4 g/dL (32.0-36.0); Mean Corpuscular Volume 86.5 fL (80.0-100.0); Mean Platelet Volume 8.8 fL (9.4-12.4); Platelet Count 245 K/uL (130-400); RDW Coefficient of Variation 11.8 % (11.5-14.5); RDW Standard Deviation 37.1 fL (36.4-46.3); Red Blood Count 4.83 M/uL (4.70-6.10); White Blood Count 5.74 K/ul (4.8-10.8)
[2022-10-03 06:57] LABS: BUN Creatinine Ratio 16.1 (10-20); Calcium 8.7 mg/dl (8.5-10.1); Chol HDL Ratio 3.7 (0-5); Creatinine Clr Calc Pharmacy 79.7 ml/min; Est GFR (African American) 68.1 ml/min; Est GFR (Non-African American) 58.7 ml/min
[2022-10-03] MEDS ORDERED: NON-FORMULARY MEDICATION (Fluoxetine 20 mg Tablet) PO SCH (09:00)
[2022-10-03] MEDS ORDERED: FLUoxetine HCL 10 MG CAP PO SCH (09:00)
[2022-10-03] MEDS ORDERED: lisinopril 20 MG TAB PO SCH (09:00)
--- NOTE | 2022-10-03 09:38 | Hospitalist Progress Note ---
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 Pt presented to ED with BP 247/145 with associated neurological sx of vertigo and L sided facial, "sensation." He received 10mg IV labetalol in ED with improvement of blood pressures to 180s over 120s. His neurologic symptoms also resolved. Stroke alert was called secondary to neurologic symptoms in association with severely elevated blood pressure. He was felt to be not a TNKase candidate as symptoms resolved. He has prior history of hypertension however had stopped taking his lisinopril approximately a year ago. He does drink significant caffeine and does associate increased stress in life. He did receive 0.625 mg of IV Vasotec in ER as well Hypertensive emergency admitted to PCU for freq BP monitoring and neuro checks started lisinopril 20mg daily UDS and urine for metanephrines/catecolamines ordered to eval for Pheo 24 hr urine collected - results to be sent to PCP's office will need close OP follow up for BP management - was arranged heart healthy, low sodium diet A1c 5.1%, lipid panel - Total CH 210, TG 127, LDL 128 +FH of Mother with [place] and bypass in early 60s encouraged weaning off and significantly reducing caffeine intake it is possible pt may have had a TIA vs hypertensive encephalopathy Proteinuria repeat urine today and 24 hr urine collection obtained - results to be sent to PCP possible 2/2 long standing HTN OP follow up arranged Abnormal CT scan, neck CT: There are numerous subcentimeter upper lobe pulmonary nodules as well as mildly enlarged and calcification containing mediastinal and hilar lymph nodes. These finding could be related to remote granulomatous infection or possibly a granulomatous process such as sarcoidosis. Clinical correlation will be required. Nonemergent/outpatient pulmonology follow-up is recommended. Pt will need OP follow up DVT ppx: SCDS Dispo: plan to DC home, with close PCP follow up FULL CODE PCP: Dr. Karolyn Cariasport Admission and Anticipated Discharge Date Admission Date: October 02, 2022 Subjective Patient seen in follow-up of uncontrolled hypertension Reports that he is feeling well, and even yesterday he felt little "off", however denies having any more serious symptoms. He finished 24-hour urine collection, and would like to be discharged home. Currently denies any chest pain shortness of breath, significant headache dizziness or palpitations. He has been ambulating in his room without any difficulty, and denies having any symptoms today. Discussed in detail follow-up with PCP, and blood pressure monitoring. Also discussed upcoming blood work to check on his kidney function. Patient understands and is in agreement Review of Systems Review of Systems: All systems reviewed & are unremarkable except as noted in Subjective Physical Exam Physical Exam: Constitutional: WD/WN M in NAD, sitting up in bed, pleasant, conversing easily Head: Normocephalic, Atraumatic Eyes: PERRL, EOMI, conjunctivae normal, anicteric sclerae ENMT: external ear and nose normal, oropharynx normal Neck:supple Respiratory: normal respiratory effort, lungs clear to auscultation, no wheeze, rales, rhonchi. Cardiovascular: RRR, no murmur, no edema Vessels: no JVD or carotid bruit Chest: normal inspection of chest Abdomen: normal bowel sounds, soft, nontender Musculoskeletal:moves extremities Skin: no rashes, warm and dry normal turgor Neurologic: PERRL, EOMI, no face palsy, no dysarthria, moves all extremities Psychiatric: A+Ox3, euthymic affect Results & Data Results & Data ([facility]) Vital Signs (Past 12 Hours) Vital Signs Temp Pulse Pulse Resp BP Pulse Ox O2 Del Method 10/03/22 08:11 36.4 C L 70 20 161/92 H 97 Room Air 10/03/22 03:08 36.6 C 61 16 122/77 97 Room Air 10/02/22 22:21 77 10/02/22 23:07 36.6 C 77 16 141/85 H 97 Room Air Laboratory Results 10/03/22 10/03/22 10/03/22 Range/Units 06:07 06:07 06:07 WBC 5.74 (4.8-10.8) K/ul RBC 4.83 (4.70-6.10) M/uL Hgb 15.2 (14.0-18.0) g/dl Hct 41.8 L (42.0-52.0) % MCV 86.5 (80.0-100.0) fL MCH 31.5 (25.0-34.0) pg MCHC 36.4 H (32.0-36.0) g/dL RDW Std Deviation 37.1 (36.4-46.3) fL RDW Coeff of Shen 11.8 (11.5-14.5) % Plt Count 245 (130-400) K/uL MPV 8.8 L (9.4-12.4) fL Immature Gran % (Auto) % Neut % (Auto) % Lymph % (Auto) % Sharkey % (Auto) % Eos % (Auto) % Baso % (Auto) % Neut # (Auto) (1.40-6.50) K/uL Lymph # (Auto) (1.2-3.4) K/uL Sharkey # (Auto) (0.11-0.59) K/uL Eos # (Auto) (0-0.50) K/uL Baso # (Auto) (0-0.2) K/uL Immature Gran # (Auto) (0.01-0.20) K/uL PT (9.0-12.0) Seconds INR (0.9-1.1) APTT (21.0-31.0) Seconds PTT Ratio Sodium 138 (136-145) mmol/L Potassium 4.0 (3.5-5.1) mmol/L Chloride 106 (98-107) mmol/L Carbon Dioxide 27 (21-32) mmol/L Anion Gap 5 (3-11) BUN 23 (6-23) mg/dl Creatinine 1.43 H (0.6-1.4) mg/dl Est Cr Clr Drug Dosing 79.7 ml/min Est GFR ( Amer) 68.1 ml/min Est GFR (Non-Af Amer) 58.7 ml/min BUN/Creatinine Ratio 16.1 (10-20) Glucose 96 (70-99(Fasting)) mg/dl POC Glucose (70-99) mg/dl Estimat Average Glucose Pending Hemoglobin A1c Pending Calcium 8.7 (8.5-10.1) mg/dl Magnesium 2.0 (1.7-2.4) mg/dl Total Bilirubin (0.2-1.0) mg/dl AST (13-39) U/L ALT (7-52) U/L Alkaline Phosphatase (34-104) U/L Troponin I High Sens (0-20) pg/ml Total Protein (6.0-8.3) gm/dl Albumin (3.4-5.0) gm/dl Globulin (2.5-4.0) gm/dl Albumin/Globulin Ratio (0.9-2) Triglycerides 127 (0-150) mg/dl Cholesterol 210 H (0-200) mg/dl LDL Cholesterol, Calc 128 mg/dl VLDL Cholesterol, Calc 25 (0-30) mg/dl HDL Cholesterol 57 mg/dl Cholesterol/HDL Ratio 3.7 (0-5) Urine Color Urine Appearance (Clear) Urine pH (4.5-7.5) Ur Specific Sullivan (1.000-1.030) Urine Protein (Negative) Urine Glucose (UA) (Negative) Urine Ketones (Negative) Urine Blood (Negative) Urine Nitrite (Negative) Urine Bilirubin (Negative) Urine Urobilinogen (Negative) Ur Leukocyte Esterase (Negative) Urine WBC (Auto) (0-5) /hpf Urine RBC (Auto) (0-4) /hpf U Hyaline Cast (Auto) (0-5) /lpf U Epithel Cells (Auto) (0-5) /lpf Urine Bacteria (Auto) (Negative) Urine Opiates Screen (Neg) Ur Methadone, Qual (Neg) Urine Barbiturates (Neg) Ur Phencyclidine (PCP) (Neg) U Amphetamin/Meth Scrn (Neg) MDMA (Ecstasy) Screen (Neg) U Benzodiazepines Scrn (Neg) Ur Cocaine Metabolite (Neg) U Marijuana (THC) Screen (Neg) SARS-CoV-2, RNA, NAAT (NEGATIVE) Blood Type Antibody Screen 10/02/22 10/02/22 10/02/22 Range/Units 12:25 11:25 11:25 WBC (4.8-10.8) K/ul RBC (4.70-6.10) M/uL Hgb (14.0-18.0) g/dl Hct (42.0-52.0) % MCV (80.0-100.0) fL MCH (25.0-34.0) pg MCHC (32.0-36.0) g/dL RDW Std Deviation (36.4-46.3) fL RDW Coeff of Shen (11.5-14.5) % Plt Count (130-400) K/uL MPV (9.4-12.4) fL Immature Gran % (Auto) % Neut % (Auto) % Lymph % (Auto) % Sharkey % (Auto) % Eos % (Auto) % Baso % (Auto) % Neut # (Auto) (1.40-6.50) K/uL Lymph # (Auto) (1.2-3.4) K/uL Sharkey # (Auto) (0.11-0.59) K/uL Eos # (Auto) (0-0.50) K/uL Baso # (Auto) (0-0.2) K/uL Immature Gran # (Auto) (0.01-0.20) K/uL PT (9.0-12.0) Seconds INR (0.9-1.1) APTT (21.0-31.0) Seconds PTT Ratio Sodium (136-145) mmol/L Potassium (3.5-5.1) mmol/L Chloride (98-107) mmol/L Carbon Dioxide (21-32) mmol/L Anion Gap (3-11) BUN (6-23) mg/dl Creatinine (0.6-1.4) mg/dl Est Cr Clr Drug Dosing ml/min Est GFR ( Amer) ml/min Est GFR (Non-Af Amer) ml/min BUN/Creatinine Ratio (10-20) Glucose (70-99(Fasting)) mg/dl POC Glucose (70-99) mg/dl Estimat Average Glucose Hemoglobin A1c Calcium (8.5-10.1) mg/dl Magnesium (1.7-2.4) mg/dl Total Bilirubin (0.2-1.0) mg/dl AST (13-39) U/L ALT (7-52) U/L Alkaline Phosphatase (34-104) U/L Troponin I High Sens (0-20) pg/ml Total Protein (6.0-8.3) gm/dl Albumin (3.4-5.0) gm/dl Globulin (2.5-4.0) gm/dl Albumin/Globulin Ratio (0.9-2) Triglycerides (0-150) mg/dl Cholesterol (0-200) mg/dl LDL Cholesterol, Calc mg/dl VLDL Cholesterol, Calc (0-30) mg/dl HDL Cholesterol mg/dl Cholesterol/HDL Ratio (0-5) Urine Color Yellow Urine Appearance Clear (Clear) Urine pH 6.5 (4.5-7.5) Ur Specific Sullivan 1.021 (1.000-1.030) Urine Protein 2+ H (Negative) Urine Glucose (UA) Negative (Negative) Urine Ketones Negative (Negative) Urine Blood Negative (Negative) Urine Nitrite Negative (Negative) Urine Bilirubin Negative (Negative) Urine Urobilinogen Negative (Negative) Ur Leukocyte Esterase Negative (Negative) Urine WBC (Auto) 0 (0-5) /hpf Urine RBC (Auto) 0-4 (0-4) /hpf U Hyaline Cast (Auto) 0 (0-5) /lpf U Epithel Cells (Auto) 0-5 (0-5) /lpf Urine Bacteria (Auto) Negative (Negative) Urine Opiates Screen Neg (Neg) Ur Methadone, Qual Neg (Neg) Urine Barbiturates Neg (Neg) Ur Phencyclidine (PCP) Neg (Neg) U Amphetamin/Meth Scrn Neg (Neg) MDMA (Ecstasy) Screen Neg (Neg) U Benzodiazepines Scrn Neg (Neg) Ur Cocaine Metabolite Neg (Neg) U Marijuana (THC) Screen Neg (Neg) SARS-CoV-2, RNA, NAAT NEGATIVE (NEGATIVE) Blood Type Antibody Screen 10/02/22 10/02/22 10/02/22 Range/Units 10:50 10:43 10:43 WBC (4.8-10.8) K/ul RBC (4.70-6.10) M/uL Hgb (14.0-18.0) g/dl Hct (42.0-52.0) % MCV (80.0-100.0) fL MCH (25.0-34.0) pg MCHC (32.0-36.0) g/dL RDW Std Deviation (36.4-46.3) fL RDW Coeff of Shen (11.5-14.5) % Plt Count (130-400) K/uL MPV (9.4-12.4) fL Immature Gran % (Auto) % Neut % (Auto) % Lymph % (Auto) % Sharkey % (Auto) % Eos % (Auto) % Baso % (Auto) % Neut # (Auto) (1.40-6.50) K/uL Lymph # (Auto) (1.2-3.4) K/uL Sharkey # (Auto) (0.11-0.59) K/uL Eos # (Auto) (0-0.50) K/uL Baso # (Auto) (0-0.2) K/uL Immature Gran # (Auto) (0.01-0.20) K/uL PT 10.5 (9.0-12.0) Seconds INR 1.0 (0.9-1.1) APTT 28.2 (21.0-31.0) Seconds PTT Ratio 1.0 Sodium 134 L (136-145) mmol/L Potassium 3.7 (3.5-5.1) mmol/L Chloride 102 (98-107) mmol/L Carbon Dioxide 28 (21-32) mmol/L Anion Gap 4 (3-11) BUN 19 (6-23) mg/dl Creatinine 1.17 (0.6-1.4) mg/dl Est Cr Clr Drug Dosing 98.9 ml/min Est GFR ( Amer) 86.7 ml/min Est GFR (Non-Af Amer) 74.8 ml/min BUN/Creatinine Ratio 16.2 (10-20) Glucose 94 (70-99(Fasting)) mg/dl POC Glucose 99 (70-99) mg/dl Estimat Average Glucose Hemoglobin A1c Calcium 8.3 L (8.5-10.1) mg/dl Magnesium 1.7 (1.7-2.4) mg/dl Total Bilirubin 0.5 (0.2-1.0) mg/dl AST 22 (13-39) U/L ALT 26 (7-52) U/L Alkaline Phosphatase 80 (34-104) U/L Troponin I High Sens 8.0 (0-20) pg/ml Total Protein 6.7 (6.0-8.3) gm/dl Albumin 3.7 (3.4-5.0) gm/dl Globulin 3.0 (2.5-4.0) gm/dl Albumin/Globulin Ratio 1.2 (0.9-2) Triglycerides (0-150) mg/dl Cholesterol (0-200) mg/dl LDL Cholesterol, Calc mg/dl VLDL Cholesterol, Calc (0-30) mg/dl HDL Cholesterol mg/dl Cholesterol/HDL Ratio (0-5) Urine Color Urine Appearance (Clear) Urine pH (4.5-7.5) Ur Specific Sullivan (1.000-1.030) Urine Protein (Negative) Urine Glucose (UA) (Negative) Urine Ketones (Negative) Urine Blood (Negative) Urine Nitrite (Negative) Urine Bilirubin (Negative) Urine Urobilinogen (Negative) Ur Leukocyte Esterase (Negative) Urine WBC (Auto) (0-5) /hpf Urine RBC (Auto) (0-4) /hpf U Hyaline Cast (Auto) (0-5) /lpf U Epithel Cells (Auto) (0-5) /lpf Urine Bacteria (Auto) (Negative) Urine Opiates Screen (Neg) Ur Methadone, Qual (Neg) Urine Barbiturates (Neg) Ur Phencyclidine (PCP) (Neg) U Amphetamin/Meth Scrn (Neg) MDMA (Ecstasy) Screen (Neg) U Benzodiazepines Scrn (Neg) Ur Cocaine Metabolite (Neg) U Marijuana (THC) Screen (Neg) SARS-CoV-2, RNA, NAAT (NEGATIVE) Blood Type Antibody Screen 10/02/22 10/02/22 Range/Units 10:43 10:43 WBC 5.78 (4.8-10.8) K/ul RBC 4.68 L (4.70-6.10) M/uL Hgb 14.7 (14.0-18.0) g/dl Hct 39.8 L (42.0-52.0) % MCV 85.0 (80.0-100.0) fL MCH 31.4 (25.0-34.0) pg MCHC 36.9 H (32.0-36.0) g/dL RDW Std Deviation 35.4 L (36.4-46.3) fL RDW Coeff of Shen 11.7 (11.5-14.5) % Plt Count 242 (130-400) K/uL MPV 8.8 L (9.4-12.4) fL Immature Gran % (Auto) 0.3 % Neut % (Auto) 58.0 % Lymph % (Auto) 30.6 % Sharkey % (Auto) 9.7 % Eos % (Auto) 1.2 % Baso % (Auto) 0.2 % Neut # (Auto) 3.35 (1.40-6.50) K/uL Lymph # (Auto) 1.77 (1.2-3.4) K/uL Sharkey # (Auto) 0.56 (0.11-0.59) K/uL Eos # (Auto) 0.07 (0-0.50) K/uL Baso # (Auto) 0.01 (0-0.2) K/uL Immature Gran # (Auto) 0.02 (0.01-0.20) K/uL PT (9.0-12.0) Seconds INR (0.9-1.1) APTT (21.0-31.0) Seconds PTT Ratio Sodium (136-145) mmol/L Potassium (3.5-5.1) mmol/L Chloride (98-107) mmol/L Carbon Dioxide (21-32) mmol/L Anion Gap (3-11) BUN (6-23) mg/dl Creatinine (0.6-1.4) mg/dl Est Cr Clr Drug Dosing ml/min Est GFR ( Amer) ml/min Est GFR (Non-Af Amer) ml/min BUN/Creatinine Ratio (10-20) Glucose (70-99(Fasting)) mg/dl POC Glucose (70-99) mg/dl Estimat Average Glucose Hemoglobin A1c Calcium (8.5-10.1) mg/dl Magnesium (1.7-2.4) mg/dl Total Bilirubin (0.2-1.0) mg/dl AST (13-39) U/L ALT (7-52) U/L Alkaline Phosphatase (34-104) U/L Troponin I High Sens (0-20) pg/ml Total Protein (6.0-8.3) gm/dl Albumin (3.4-5.0) gm/dl Globulin (2.5-4.0) gm/dl Albumin/Globulin Ratio (0.9-2) Triglycerides (0-150) mg/dl Cholesterol (0-200) mg/dl LDL Cholesterol, Calc mg/dl VLDL Cholesterol, Calc (0-30) mg/dl HDL Cholesterol mg/dl Cholesterol/HDL Ratio (0-5) Urine Color Urine Appearance (Clear) Urine pH (4.5-7.5) Ur Specific Sullivan (1.000-1.030) Urine Protein (Negative) Urine Glucose (UA) (Negative) Urine Ketones (Negative) Urine Blood (Negative) Urine Nitrite (Negative) Urine Bilirubin (Negative) Urine Urobilinogen (Negative) Ur Leukocyte Esterase (Negative) Urine WBC (Auto) (0-5) /hpf Urine RBC (Auto) (0-4) /hpf U Hyaline Cast (Auto) (0-5) /lpf U Epithel Cells (Auto) (0-5) /lpf Urine Bacteria (Auto) (Negative) Urine Opiates Screen (Neg) Ur Methadone, Qual (Neg) Urine Barbiturates (Neg) Ur Phencyclidine (PCP) (Neg) U Amphetamin/Meth Scrn (Neg) MDMA (Ecstasy) Screen (Neg) U Benzodiazepines Scrn (Neg) Ur Cocaine Metabolite (Neg) U Marijuana (THC) Screen (Neg) SARS-CoV-2, RNA, NAAT (NEGATIVE) Blood Type O Positive Antibody Screen NEGATIVE Medications Administered Current Inpatient Medications Acetaminophen (Acetaminophen 325 Mg Tab) 650 mg PO Q4H PRN PRN Reason: Pain or Fever Stop: 11/01/22 16:04 Al Hydrox/Mg Hydrox/Simethicone (Aluminum/Magnesium Susp 30 Ml Udc) 15 ml PO Q4H PRN PRN Reason: Dyspepsia Stop: 11/01/22 16:04 Fluoxetine HCl (Fluoxetine Hcl 10 Mg Cap) 30 mg PO DAILY [facility] Stop: 11/02/22 08:59 Last Admin: 10/03/22 07:48 Dose: 30 mg Lisinopril (Lisinopril 20 Mg Tab) [facility] Stop: 11/02/22 08:59 Last Admin: 10/03/22 07:47 Dose: 20 mg Magnesium Hydroxide (Magnesium Hydroxide Susp 30 Ml Udc) 30 ml PO Q12H PRN PRN Reason: Constipation Stop: 11/01/22 16:04 Polyethylene Glycol (Polyethylene (Miralax) 17 Gm Pack) 17 gm PO DAILY PRN PRN Reason: Constipation Stop: 11/01/22 16:04
--- NOTE | 2022-10-03 10:07 | Electrocardiogram Report ---
Test Reason : Blood Pressure : / mmHG Vent. Rate : 067 BPM Atrial Rate : 067 BPM P-R Int : 150 ms QRS Dur : 096 ms QT Int : 430 ms P-R-T Axes : 066 060 079 degrees QTc Int : 454 ms Normal sinus rhythm with sinus arrhythmia Normal ECG When compared with ECG of 02-OCT-2022 10:44, Questionable change in QRS axis Confirmed by Brian Mendoza ([id number] on 10/03/2022 10:07:09 AM Referred By: REFERRED SELF Confirmed By:Diego Mendoza
[2022-10-03 11:28] LABS: Estimated Average Glucose 100 mg/dl; Hemoglobin A1C 5.1 % (4.5-5.6)
[2022-10-03 15:25] LABS: Appearance Urine Clear (Clear); Bacteria Urine Automated Negative (Negative); Bilirubin Urine Negative (Negative); Blood Urine Negative (Negative); Cast Urine Automated 0 /lpf (0-5); Color Urine Yellow; Epithelial Cell Urine Auto 0-5 /lpf (0-5); Glucose Urine UA Negative (Negative); Ketones Urine Negative (Negative); Leukocyte Esterase Urine Negative (Negative); Nitrite Urine Negative (Negative); Protein Urine 1+ (Negative); RBC Urine Automated 0-4 /hpf (0-4); Specific Gravity Urine 1.007 (1.000-1.030); Urobilinogen Urine Negative (Negative); WBC Urine Automated 0 /hpf (0-5); pH Urine 6.5 (4.5-7.5)
--- NOTE | 2022-10-04 08:08 | Discharge Summary ---
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 He was at work when he got off the phone and had an off-balance sensation when trying to walk, stumbled but caught himself and did not fall. He went in and sat down and generally just did not, "feel right." He also elicits to a sensation to the left side of his head and face. He denies claudia numbness or tingling to the left side and face. He denies any slurred speech or reported facial droop or associated limb weakness. He has never felt anything like this before. After sitting down he had to go back outside to make a call when he continued to feel off balance and not right, but this time did not stumble. He then alerted his boss he needed to seek medical treatment. He denies any claudia headache, change in vision or change in hearing, tinnitus, chest pain, shortness of breath, cough, palpitations, nausea, vomiting, abdominal pain. He is otherwise been in the normal state of health. He only takes 1 medication for his PTSD. 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 He does admit to increased stress in his life right now. He does have a significant family history of coronary artery disease in his mother who suffered a heart attack and bypass in her early 60s. He denies any cardiac or high blood pressure in his father. He does drink 4 to 6 cups of coffee a day. Admission Exam Per Admitting Provider Constitutional: WD/WN, vitals as above, NAD, sitting up in bed, pleasant, conversing easily Head: Normocephalic, Atraumatic Eyes: PERRL, conjunctivae normal, anicteric sclerae ENMT: external ear and nose normal, oropharynx normal Neck: trachea midline, no thyromegaly normal visual inspection Respiratory: normal respiratory effort, lungs clear to auscultation, no wheeze, rales, rhonchi. Normal insp/exp effort, no accessory muscle use Cardiovascular: RRR, no murmur, no edema Vessels: no JVD or carotid bruit Chest: normal inspection of chest Abdomen: normal bowel sounds, soft, nontender, no hepatosplenomegaly Musculoskeletal: no cyanosis or clubbing, extremities motor strength 5/5 Skin: no rashes, warm and dry normal turgor Neurologic: PERRL, EOMI, accommodation nl, no face palsy, no dysarthria CN's II-XI intact bilaterally and moves all extremities Psychiatric: A+Ox3, euthymic affect Lymphatic: no cervical or axillary lymphadenopathy : deferred Principal Diagnosis Uncontrolled hypertension/hypertensive emergency Proteinuria Discharge Exam Constitutional: WD/WN M in NAD, sitting up in bed, pleasant, conversing easily Head: Normocephalic, Atraumatic Eyes: PERRL, EOMI, conjunctivae normal, anicteric sclerae ENMT: external ear and nose normal, oropharynx normal Neck:supple Respiratory: normal respiratory effort, lungs clear to auscultation, no wheeze, rales, rhonchi. Cardiovascular: RRR, no murmur, no edema Vessels: no JVD or carotid bruit Chest: normal inspection of chest Abdomen: normal bowel sounds, soft, nontender Musculoskeletal:moves extremities Skin: no rashes, warm and dry normal turgor Neurologic: PERRL, EOMI, no face palsy, no dysarthria, moves all extremities Psychiatric: A+Ox3, euthymic affect Discharge Data Allergies Allergy/AdvReac Type Severity Reaction Status Date / Time No Known Allergies Allergy Unverified 10/02/22 12:22 Consultations 10/02/22 12:17 ED Decision to Admit Stat Ordered Studies 10/02/22 10:32 CT angio head w con Stat FINDINGS: CT ANGIOGRAM OF THE BRAIN: The imaged bilateral internal carotid arteries are patent. The bilateral anterior and middle cerebral arteries are also patent. The vertebrobasilar system and posterior cerebral arteries are widely patent. There is no aneurysm, high-grade stenosis, or proximal branch occlusion identified. Dural sinuses appear patent. IMPRESSION: Unremarkable CTA of the head. CT angio neck with con Stat FINDINGS: Thoracic aorta: Visualized portions of the thoracic aorta are normal in caliber. The aortic arch demonstrates bovine variant anatomy. Right carotid arterial system: The right common carotid artery is widely patent, as are the right internal and external carotid arteries. Left carotid arterial system: The left common carotid artery is widely patent, as are the left internal and external carotid arteries. Vertebral arteries: The vertebral arteries are widely patent bilaterally and codominant. Subclavian arteries: Widely patent bilaterally. Intracranial vasculature: The partially visualized intracranial vessels at the skull base appear patent. Sinuses and mastoids: There is trace mucosal thickening in the left maxillary antrum. The remaining visualized paranasal sinuses are clear. The mastoid air cells are well pneumatized. Jugular veins: Widely patent bilaterally. Brain parenchyma: The visualized brain parenchyma the skull base is within normal limits. Upper chest: There are numerous subcentimeter upper lobe pulmonary nodules. No airspace consolidation or pleural effusion is identified. Mildly enlarged and calcified mediastinal lymph nodes are partially visualized. There are also calcified hilar nodes. Soft tissues: The visualized pharyngeal soft tissues are normal in appearance noting angiographic phase technique. The oropharyngeal airway appears widely patent. The salivary and thyroid glands are normal in appearance. No cervical lymphadenopathy is seen. Skeletal structures: The visualized calvarium at the skull base appears intact. The imaged cervical spine is within normal limits. Sinuses and mastoids: There is trace mucosal thickening in the left maxillary an trum. The remaining visualized paranasal sinuses are clear. The mastoid air cells are well pneumatized. IMPRESSION: 1. Unremarkable CT angiogram of the neck. 2. There are numerous subcentimeter upper lobe pulmonary nodules as well as mildly enlarged and calcification containing mediastinal and hilar lymph nodes. These finding could be related to remote granulomatous infection or possibly a granulomatous process such as sarcoidosis. Clinical correlation will be required. Nonemergent/outpatient pulmonology follow-up is recommended. CT head/brain wo con Stat FINDINGS: No acute intracranial hemorrhage, midline shift or mass effect is present. The ventricular system is unremarkable. The basal cisterns are patent. No extra-axial collections are present. There are no findings to suggest acute dural sinus thrombosis or acute territorial infarct. No significant calvarial abnormalities are present. Visualized portions of the sinuses and mastoid air cells are clear. IMPRESSION: No acute intracranial findings. 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 Pt presented to ED with BP 247/145 with associated neurological sx of vertigo and L sided facial, "sensation." He received 10mg IV labetalol in ED with improvement of blood pressures to 180s over 120s. His neurologic symptoms also resolved. Stroke alert was called secondary to neurologic symptoms in association with severely elevated blood pressure. He was felt to be not a TNKase candidate as symptoms resolved. He has prior history of hypertension however had stopped taking his lisinopril approximately a year ago. He does drink significant caffeine and does associate increased stress in life. He did receive 0.625 mg of IV Vasotec in ER as well Hypertensive emergency admitted to PCU for freq BP monitoring and neuro checks started lisinopril 20mg daily - pt will need repeat BMP as outpt at the next appointment UDS and urine for metanephrines/catecolamines ordered to eval for Pheo 24 hr urine collected - results to be sent to PCP's office will need close OP follow up for BP management - was arranged heart healthy, low sodium diet A1c 5.1%, lipid panel - Total CH 210, TG 127, LDL 128 +FH of Mother with AL and bypass in early 60s encouraged weaning off and significantly reducing caffeine intake it is possible pt may have had a TIA vs hypertensive encephalopathy Proteinuria repeat urine today and 24 hr urine collection obtained - results to be sent to PCP possible 2/2 long standing HTN OP follow up arranged Abnormal CT scan, neck CT: There are numerous subcentimeter upper lobe pulmonary nodules as well as mildly enlarged and calcification containing mediastinal and hilar lymph nodes. These finding could be related to remote granulomatous infection or possibly a granulomatous process such as sarcoidosis. Clinical correlation will be required. Nonemergent/outpatient pulmonology follow-up is recommended. Pt will need OP follow up PCP: Dr. Karolyn Chris Total Time Total Time Spent Total Time Spent (In Minutes): 40 Discharge Plan Discharge Items Patient Disposition: Home - Self-Care Reason For Visit: HTN EMERGENCY Discharge Diagnosis: Uncontrolled hypertension/hypertensive emergency Proteinuria Activity: Per Instructions section Non-emergency contact: Primary Care Provider Call non-emergency contact if: you have any medication questions and your symptoms worsen Follow-up/Referrals: Pasha Parr M.D. [Primary Care Provider] - 10/08/22 9:30 am (Dr Parr has retired, you have an appointment with Dr Missael Phillip. ) Diet: Heart Healthy and Low Sodium (2gm) Diet Comment: Recommend low caffeine intake Addtl Attending Provider Instructions: Follow-up with your primary care doctor, the appointment was scheduled for you for October 08. At that time you will need blood work, BMP, done, to assess your kidney function. Results of current studies will be sent to your primary care physician's office. For now, continue taking lisinopril 20 mg daily as prescribed. If you can, monitor your blood pressure at home, and write down your numbers. Discuss further with your PCP about further adjustment of your blood pressure medications. Pending Studies at Discharge: Yes Studies:: 24-hour urine collection for pheochromocytoma evaluation and proteinuria Stand-Alone Forms: My [facility] [place] [email or web address], Smoking Cessation Medications and DC Order Prescriptions: New lisinopril 20 mg Tablet 20 mg PO QAM Qty: 10 0RF Continued fluoxetine 20 mg Tablet 30 mg PO DAILY Discharge Orders: Discharge Order (Routine); Ordered 10/03/22 Ordered By: Fred Gallegos/Other Patient Handouts: Controlling High Blood Pressure Admission Data Admit Date/Time: 10/02/22 13:13 Attending Provider: Fred Marquez Admit Provider: Maty Szymanski Primary Care Provider: Pasha Parr Other Providers: Maty Szymanski Other Interventions: Discharge Summary Assessment (RN) Last Done: 10/03/22 17:46
[2022-10-08 17:41] LABS: Normetanephrine, Ur 407 mcg/24 h (88-649); Total Metanephrine 690 mcg/24 h (182-739)
== END 2022-10-03 18:22 | disposition home or self-care (01) | DRG 305 ==
LOC: ED 10:12 → 4W 13:13 → SUATTDRO 13:13 → 4W 15:35